=== PATIENT | male | born 1950 | race Caucasian/White ===

== ENCOUNTER → 2018-06-30 07:45 | Day surgery (SDC) | payer MEDICARE ==
[~2018-06-30 07:45] MED LIST: Buffered Lidocaine 0.9% SYRIN* 5 ML/SYR SYRINGE INTRADERM ONE; Bupivacaine 0.25% W/EPI* 10 ML SDV ONE; Midazolam* 1 MG/ML 2 ML VIAL (2 MG) ONE; Naloxone* 0.4 MG/ML 1 ML VIAL IV PRN; Propofol* 10 MG/ML 20 ML BTL IV PUSH ONE; fentaNYL* 50 MCG/ML 2 ML VIAL (100 MCG VIAL) ONE
[2018-06-30 10:04] VITALS: BP 154/91
--- NOTE | 2018-07-04 09:06 | OP ---
Operative Report - Blank - Operative Report Date of Operation: 06/30/18 Note: DATE OF OPERATION: 06/30/2018 - [facility] DATE OF : 1950 SURGEON: Mu Chirinos MD [employer] MACH[employer] OPERATOR: QUE Lopez ANESTHESIOLOGIST: Dr. Dan. ANESTHESIA: Local MAC. PRE-OP DIAGNOSIS: Right carpal tunnel syndrome. POST-OP DIAGNOSIS: Right carpal tunnel syndrome. OPERATIVE PROCEDURE: Right open carpal tunnel release. INDICATIONS: Mr. Clark has progressive right carpal tunnel syndrome. We talked about risks and benefits. He wanted to proceed. ESTIMATED BLOOD LOSS: 2 mL. COMPLICATIONS: None. FINDINGS: As expected. DESCRIPTION OF PROCEDURE: Michael was seen in the preoperative holding area. The correct side, site and the procedure were identified. We came back to the operating room. I anesthetized the operative area with long acting local anesthetic. The arm was prepped and draped in usual fashion. The arm was exsanguinated with the Esmarch and the tourniquet was inflated to 250 mmHg. I made a 2 to 3 cm longitudinal incision in the standard location for an open carpal tunnel release. Dissection was carried down through the subcutaneous tissue and palmar fascia. Transverse carpal ligament was released off the radial aspect of the hook of the hamate. The release was completed distally and proximally I released the fascia and subcutaneous tissue and retracted this volarly and ulnarly and then under direct visualization I released the remainder of the transverse carpal ligament and distal antebrachial fascia to level several centimeters proximal to the wrist flexion crease. The release at this point was complete. Everything was looking good with absolutely no compression on the nerve. I irrigated out the wound. Skin was closed with 4-0 nylon suture. Wounds were dressed appropriately and he was taken to recovery room in stable condition.
== END | disposition home or self-care (01) ==
LOC: OR 07:45
PROVIDERS: ATTEND Orthopaedic Surgery Hand Surgery
DX: G56.01 Carpal tunnel syndrome, right upper limb (principal); I10 Essential (primary) hypertension; Z87.891 Personal history of nicotine dependence; L40.50 Arthropathic psoriasis, unspecified; Z86.12 Personal history of poliomyelitis
CPT/HCPCS: J2250; J2704; J3010

== ENCOUNTER 2018-07-21 06:46 | Day surgery (SDC) | payer MEDICARE ==
[~2018-07-21 06:46] MED LIST changes: -Bupivacaine 0.25% W/EPI* 10 ML SDV ONE; -Midazolam* 1 MG/ML 2 ML VIAL (2 MG) ONE; -Naloxone* 0.4 MG/ML 1 ML VIAL IV PRN; -Propofol* 10 MG/ML 20 ML BTL IV PUSH ONE; -fentaNYL* 50 MCG/ML 2 ML VIAL (100 MCG VIAL) ONE
[2018-07-21] MEDS ORDERED: Losartan TAB* 25 MG PO ONE (08:00)
[2018-07-21] MEDS ORDERED: Midazolam* 1 MG/ML 2 ML VIAL (2 MG) ONE (10:08)
[2018-07-21] MEDS ORDERED: fentaNYL* 50 MCG/ML 2 ML VIAL (100 MCG VIAL) ONE (10:08)
[2018-07-21] MEDS ORDERED: Propofol* 10 MG/ML 20 ML BTL IV PUSH ONE (10:11)
[2018-07-21] MEDS ORDERED: Bupivacaine 0.25% SDV* 30 ML ONE (10:11)
[2018-07-21] MEDS ORDERED: Lidocaine 2% PF * 5 ML VIAL ONE (10:12)
[2018-07-21] MEDS ORDERED: Naloxone* 0.4 MG/ML 1 ML VIAL IV PRN (10:29)
[2018-07-21] MEDS ORDERED: Labetalol IV* 5 MG/ML 20 ML VIAL ONE (11:10)
[2018-07-21 12:02] VITALS: BP 140/79
--- NOTE | 2018-07-27 21:08 | OP ---
Operative Report - Blank - Operative Report Date of Operation: 07/21/18 Note: DATE OF OPERATION: 07/21/2018 DATE OF : 1950 SURGEON: Mu Chirinos MD [employer] PRACTITIONER: QUE Lopez ANESTHESIA: Local MAC. PRE-OP DIAGNOSIS: Left carpal tunnel syndrome. POST-OP DIAGNOSIS: Left carpal tunnel syndrome. OPERATIVE PROCEDURE: Left open carpal tunnel release. INDICATIONS: Michael has progressive left carpal tunnel syndrome. We talked about risks and benefits. He wanted to proceed. ESTIMATED BLOOD LOSS: 2 mL. COMPLICATIONS: None. FINDINGS: As expected. DESCRIPTION OF PROCEDURE: Michael was seen in the preoperative holding area. The correct side, site and the procedure were identified. We came back to the operating room. I anesthetized the operative area with long-acting local anesthetic. The arm was prepped and draped in usual fashion. The arm was exsanguinated with the Esmarch and the tourniquet was inflated to 250 mmHg. I made a 2 to 3 cm longitudinal incision in the standard location for an open carpal tunnel release. Dissection was carried down through the subcutaneous tissue and palmar fascia. Transverse carpal ligament was released off the radial aspect of the hook of the hamate. The release was completed distally and proximally I released the fascia and subcutaneous tissue and retracted this volarly and ulnarly and then under direct visualization I released the remainder of the transverse carpal ligament and distal antebrachial fascia to level several centimeters proximal to the wrist flexion crease. The release at this point was complete. Everything was looking good with absolutely no compression on the nerve. I irrigated out the wound. Skin was closed with 4-0 nylon suture. Wounds were dressed appropriately and he was taken to recovery room in stable condition.
== END 2018-07-21 12:16 | disposition home or self-care (01) ==
LOC: OR 06:46
PROVIDERS: ATTEND Orthopaedic Surgery Hand Surgery
DX: G56.02 Carpal tunnel syndrome, left upper limb (principal); I10 Essential (primary) hypertension; L40.50 Arthropathic psoriasis, unspecified; Z87.891 Personal history of nicotine dependence; Z86.12 Personal history of poliomyelitis
CPT/HCPCS: A9270-GY; J2250; J2704; J3010